=== PATIENT | male | born 1955 | race Caucasian/White ===

== ENCOUNTER 2017-02-20 14:28 | Inpatient (IN) | payer OTHER ==
[~2017-02-20] VITALS: Ht 175.3 cm; Wt 79.4 kg
[~2017-02-20 14:28] MED LIST: AMLODIPINE BESYL5 M1 PO; COLCHICINE0.6 M2 PO; DELTASONE20 MG PO; DOXYCYCLINE HY100 M4 PO; FLEXERIL10 MG PO; FLOMAX0.4 M1 PO; IBUPROFEN800 M1 PO; PERCOCET 325 MG1 TA2 PO; PERCOCET 5-3251 EACH PO; VYTORIN 10-401 EACH PO; WARFARIN SODIUM5 M1 PO; ZOFRAN ODT4 M1 SL
--- NOTE | 2017-02-20 14:39 | NUR ---
PT RETURNS TO ED WITH C/O LEFT FLANK PAIN, DX WITH KIDNEY STONE YESTERDAY, TAKING PAIN MEDS PRESCIBED, "NOT WORKING ANY MORE".
--- NOTE | 2017-02-20 14:44 | ED GI/GU/ABDOMINAL COMPLAINT ---
History of Present Illness General Chief Complaint: Abdominal Pain/Flank Pain Stated Complaint: KIDNEY STONE Source: patient Exam Limitations: no limitations Vital Signs & Intake/Output Vital Signs & Intake/Output Vital Signs Date Time Temp Pulse Resp B/P B/P Pulse O2 O2 Flow FiO2 Mean Ox Delivery Rate 02/21 0650 98.6 72 20 130/72 95 02/20 2303 98.3 78 20 124/60 97 02/20 2243 97.4 55 18 100/53 97 Room Air Room Air 02/20 2048 97.8 54 18 107/54 02/20 2048 97.5 54 18 107/54 98 Room Air Room Air 02/20 1938 97.8 50 18 102/53 95 Room Air 02/20 1626 97.8 73 18 121/69 95 Room Air 02/20 1438 97.0 76 20 159/99 98 Room Air Room Air ED Intake and Output 02/21 0000 02/20 1200 Intake Total 1000 Output Total Balance 1000 Intake, IV 1000 Patient 175 lb Weight Weight Reported by Patient Measurement Method Allergies Coded Allergies: Penicillins (UNKNOWN 03/06/16) shrimp (HIVES, TONGUE SWELLED 02/20/17) morphine (ITCHY AND UPSET STOMACH (VIOLENTLY ILL) 03/06/16) Reconcile Medications Amlodipine Besylate 5 MG TABLET 1 TAB PO DAILY BP (Reported) Ezetimibe/Simvastatin (Vytorin 10-40 MG Tablet) 10 MG-40 MG TABLET 1 TAB PO DAILY CHOLESTEROL (Reported) Ibuprofen 800 MG TABLET 1 TAB PO TID PRN pain Ondansetron (Zofran Odt) 4 MG TAB.RAPDIS 1 TAB SL TID PRN nausea Oxycodone HCl/Acetaminophen (Percocet 5-325 MG Tablet) 5 MG-325 MG TABLET 1 TAB PO Q6H PRN pain Tamsulosin HCl (Flomax) 0.4 MG CAP.ER.24H 1 CAP PO DAILY kidney stones Warfarin Sodium 5 MG TABLET 1 TAB PO AD BLOOD THINNER (Reported) Warfarin Sodium (Coumadin) 2.5 MG TABLET 1 TAB PO Sunday BLOOD THINNER (Reported) Triage Note: PT RETURNS TO ED WITH C/O LEFT FLANK PAIN, DX WITH KIDNEY STONE YESTERDAY, TAKING PAIN MEDS PRESCIBED, "NOT WORKING ANY MORE". Triage Nurses Notes Reviewed? yes Onset: Gradual Duration: waxing and waning (2 days) Timing: recent history Quality/Severity: sharpness Severity Numbers: 10 Location: left flank Radiation: back, LLQ Activities at Onset: none Prior Abdominal Problems: similar symptoms Past Sexual History: Unobtainable at this time No Modifying Factors: none HPI: Patient is a 61-year-old male, recently diagnosed with kidney stone presenting to the emergency department with chief complaint of worsening left flank pain over the past one day. Patient reports that he was feeling improved after he was discharged, medicated in the emergency department yesterday. He tried taking medications morning for his pain which did not help. Positive nausea with one episode of emesis. Emesis was nonbloody nonbilious. Denies any fevers or chills. No chest pain palpitations or shortness of breath. Denies any urinary frequency or urgency or dysuria. No hematuria noted. Pain over the left flank radiates to the left mid back and left lower quadrant. (MARTHA JEONG) Past History Travel History Traveled to [place] past 21 day No Medical History Any Pertinent Medical History? 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 No (MARTHA JEONG) Review of Systems Review of Systems Constitutional: Reports: no symptoms. Comments Review of systems: See HPI, All other systems negative. Constitutional, no chills fever or weight loss HEENT: No visual changes no sore throat no congestion Cardiovascular: No chest pain ,palpitation , orthopnea or ankle swelling Skin, no jaundice no rashes Respiratory: No dyspnea cough sputum or hemoptysis GI: No diarrhea : No dysuria No hematuria Muscle skeletal: no back pain, no neck pain, Neurologic: No numbness no confusion, no headache Psych: No stress anxiety or depression,. Heme/endocrine: No bruising no bleeding no polyuria or polydipsia Immunology: No splenectomy or history of AIDS (MARTHA JEONG) Physical Exam Physical Exam General Appearance: alert, anxious, mild distress Gastrointestinal: tenderness Comments: Well-developed well-nourished person in moderate distress HEENT: Pupils equally round and reactive to light and accommodation. Nose is atraumatic. Neck: Normal inspection Back: Nontender, no CVA tenderness. Full range of motion Cardiovascular: Regular rate and rhythms no murmurs rubs or gallops, normal JVP Respiratory: Chest nontender. No respiratory distress.breath sounds clear to auscultation bilaterally. Abdomen: Soft, tender to palpation over the left flank, positive left CVA tenderness. Nondistended, no appreciable organomegaly. Normal bowel sounds. No ascites Extremity: No edema Neuro: Alert oriented x3 Skin: No appreciable rash on exposed skin, skin is warm and dry. Psych: Mood and affect is normal, memory and judgment is normal. Core Measures ACS in differential dx? No Severe Sepsis Present: No Septic Shock Present: No (DEYA RUELAS,MARTHA) Progress Differential Diagnosis: UTI/pyelo, hydronephrosis, pyelonephritis Plan of Care: Orders Procedure Date/time Status Regular Diet 02/21 B Active PROTHROMBIN TIME 02/21 0600 Active CBC WITHOUT DIFFERENTIAL 02/21 0600 Active BASIC ELECTROLYTES PLUS BUN&CR 02/21 0600 Active LACTIC ACID 02/21 0144 Complete Vital Signs 02/21 0122 Active Teach/Educate 02/21 0122 Active Pain Treatment and Response 02/21 0122 Active Nutritional Intake, Monitor 02/21 0122 Active Isolation 02/21 0122 Active Intake & Output 02/21 0122 Active Patient Care Conference 02/21 0122 Active Activity/Ambulation 02/21 0122 Active Nursing Misc 02/21 UNK Active Regular Diet 02/20 D Complete PROTHROMBIN TIME 02/20 2303 Complete Pathway - chart 02/20 2300 Active House Staff 02/20 2300 Active Patient Data 02/20 2300 Active Code Status 02/20 2300 Active LACTIC ACID 02/20 2244 Complete OXYGEN SETUP (GEN) 02/20 190 Active Saline Lock 02/[address] in observation 02/20 190 Active Vital Signs 02/20 190 Active Activity/Ambulation 02/20 190 Active Code Status 02/20 190 Complete Patient Data 02/20 1903 Active CULTURE,URINE 02/20 181 Active URINE DRUGS OF ABUSE 02/20 1816 Complete Intake & Output 02/20 1642 Active URINALYSIS 02/20 1443 Complete COMPREHENSIVE METABOLIC PANEL 02/20 1443 Complete CBC WITHOUT DIFFERENTIAL 02/20 1443 Complete Lab Add-on Test 02/20 UNK Active VTE Mechanical Prophylaxis 02/20 UNK Active EKG 02/20 UNK Active Current Medications Sig/Chapo Start time Last Medication Dose Stop Time Status Admin Atorvastatin Calcium 40 MG 1700 02/21 1700 AC (Lipitor) Amlodipine Besylate 5 MG DAILY 02/21 1000 AC (Norvasc) Enoxaparin Sodium 40 MG DAILY 02/21 1000 CAN (Lovenox) Pantoprazole Sodium 40 MG DAILY 02/21 1000 AC (Protonix) Tamsulosin HCl 0.4 MG DAILY 02/21 1000 AC (Flomax) Sodium Chloride 1,000 ML Q13H 02/20 2345 AC 02/21 (Normal Saline 0.9%) 0118 Ondansetron HCl 4 MG Q6P PRN 02/20 2330 AC (Zofran) Acetaminophen 650 MG Q6P PRN 02/20 2300 AC (Tylenol) Hydromorphone HCl 1 MG Q6P PRN 02/20 2300 AC 02/21 (Dilaudid) 0633 Ketorolac 15 MG Q6P PRN 02/20 2300 AC Tromethamine 02/25 2259 (Toradol) Ketorolac 30 MG ONCE ONE 02/20 1500 CAN Tromethamine 02/20 1501 (Toradol) Ondansetron HCl 4 MG ONCE ONE 02/20 1500 CAN (Zofran) 02/20 1501 Laboratory Tests 02/21/17 0240: Lactic Acid 0.8 02/20/175: Lactic Acid 1.4, PT 29.1 H, INR 2.80 H 02/20/17 1816: Urine Opiates Screen 1742.00, Methadone Screen < 40, Barbiturate Screen < 60, Ur Phencyclidine Scrn < 6.00, Amphetamines Screen < 100, U Benzodiazepines Scrn 124 , Urine Cocaine Screen < 50, Urine Cannabis Screen > 80.00 H, Urinalysis MANY H, Urine Color YEL, Urine Clarity HAZY H, Urine pH 7.5, Ur Specific [place] 1.020, Urine Protein 100 H, Urine Ketones 15 H, Urine Nitrite NEG, Urine Bilirubin NEG, Urine Urobilinogen 0.2, Ur Leukocyte Esterase NEG, Ur Microscopic SEDIMENT EXAMINED, Urine RBC 10-15 H, Urine WBC RARE, Ur Epithelial Cells RARE, Urine Mucus RARE, Urine Hemoglobin MOD H, Urine Glucose NEG 02/20/17 1452: Anion Gap 15, Estimated GFR > 60, BUN/Creatinine Ratio 16.7, Glucose 105 H, Calcium 10.0, Total Bilirubin 0.7, AST 46, ALT 34, Alkaline Phosphatase 78, Total Protein 7.7, Albumin 5.0, Globulin 2.7, Albumin/Globulin Ratio 1.9, CBC w Diff NO MAN DIFF REQ, RBC 4.03 L, MCV 90.8, MCH 31.0, RDW 13.5, MPV 7.1 L, Gran % 67.2, Lymphocytes % 24.1, Monocytes % 7.6, Eosinophils % 0.3, Basophils % 0.8, Absolute Granulocytes 4.8, Absolute Lymphocytes 1.7, Absolute Monocytes 0.5 , Absolute Eosinophils 0, Absolute Basophils 0.1, PUBS MCHC 34.2 Microbiology 02/21 1816 URINE ROUT: Urine Culture - RECD Diagnostic Imaging: Viewed by Me: Radiology Read, Nuclear Medicine. Discussed w/RAD: Radiology Read , Ultrasound. Radiology Impression: PATIENT: REGIS HADDAD PRESENT AGE: 61 PATIENT ACCOUNT NO: [id number] : 59 LOCATION: [facility] ORDERING PHYSICIAN: MARTHA RUELAS SERVICE DATE: 02/20/17 EXAM TYPE: RAD - XRY-KIDNEYS, URETERS, BLADDER EXAMINATION: XR KIDNEYS, URETER, BLADDER CLINICAL INDICATION: Left flank pain. Assess kidney stone. COMPARISON: CT of the abdomen and pelvis 02/19/2017. TECHNIQUE: 2 AP views of the abdomen. FINDINGS: A faint 4 mm calculus at the level of the left L4 transverse process may correspond to the left ureteral calculus identified on the previous CT scan. No other definite renal or ureteral calculi are identified. The bowel gas pattern is unremarkable. IMPRESSION: The previously noted left mid ureteral 4 mm calculus may be faintly visualized at the level of the left L4 transverse process. DICTATED BY: ISRRAEL VAZQUEZ MD , PATIENT: REGIS HADDAD PRESENT AGE: 61 PATIENT ACCOUNT NO: [id number] : 59 LOCATION: ER ORDERING PHYSICIAN: MARTHA RUELAS SERVICE DATE: 02/20/17-151 EXAM TYPE: US - US-RENAL/ KIDNEY EXAMINATION: US RETROPERITONEAL COMPLETE (RENAL) CLINICAL INFORMATION: Worsening flank pain. COMPARISON: CT 02/19/2017. TECHNIQUE: Real-time imaging of the kidneys and bladder. FINDINGS: The kidneys are normal in size and echotexture with the right kidney measuring 10.6 and the left kidney measuring 12.0 cm in maximal dimensions. There is no evidence of hydronephrosis or nephrolithiasis identified. There is no evidence of intraperitoneal free fluid identified. The urinary bladder contains 92 cc of fluid. Ureteral jets are not demonstrated. I am not provided with post void imaging. IMPRESSION: Unremarkable examination. DICTATED BY: ALISSA DAVID MD DATE/TIME DICTATED:02/20/171635 [employer] OFFICER:DEBBY DATE/TIME TRANSCRIBED:02/20/171635 CONFIDENTIAL, DO NOT COPY WITHOUT APPROPRIATE AUTHORIZATION. <Electronically signed in Other Vendor System> SIGNED BY: ALISSA DAVID MD 02/20/17 1642 Initial ED EKG: none Comments: Spoke with Dr. Ochoa, recommending pain control. If pain can be controlled patient to be discharged home. Patient still having significant pain after several doses of IV Dilaudid, IV Toradol and IV Tylenol. So vomiting after Zofran. Patient will be given Phenergan. Patient will be admitted for observation for intractable pain, renal colic. (MARTHA JEONG) Departure Departure Time of Disposition: 1857 Disposition: STILL A PATIENT Condition: Stable Clinical Impression Primary Impression: Intractable pain Secondary Impressions: Kidney stone, Renal colic Referrals: JASPREET PINEDA DO (PCP/Family) Departure Forms: Customer Survey General Discharge Information Observation Note Spoke With: YULY CORLEY MD Physician Advisor Notified: JUDITH WHITEHEAD DO Place Patient In: Non-ED OBS Care Area Rationale for Observation: My rational for observation is as follows . Patient requiring IV pain management, IV fluids, strain urine, urology consultation. Discharge at this time would be medically harmful, patient would likely return for worsening pain. (MARTHA JEONG) PA/DOOR ATTENDANT Co-Sign Statement Statement: ED Attending supervision documentation- x I saw and evaluated the patient. I have also reviewed all the pertinent lab results and diagnostic results. I agree with the findings and the plan of care as documented in the PA's/DOOR ATTENDANT's documentation. [] I have reviewed the ED Record and agree with the PA's/DOOR ATTENDANT's documentation. [] Additions or exceptions (if any) to the PAs/DOOR ATTENDANT's note and plan are summarized below: [] (PETE QUIGLEY,OMARI)
--- NOTE | 2017-02-20 14:49 | NUR ---
JESSENIA FALK AT BEDSIDE FOR EVALUATION
[2017-02-20 15:01] LABS: ABSOLUTE BASOPHIL COUNT 0.1 /CUMM (0.0-0.2); ABSOLUTE EOSINOPHIL COUNT 0 /CUMM (0.0-0.7); ABSOLUTE GRANULOCYTE CT 4.8 /CUMM (1.4-6.5); ABSOLUTE LYMPH COUNT 1.7 /CUMM (1.2-3.4); ABSOLUTE MONOCYTE COUNT 0.5 /CUMM (0.10-0.60); BASOPHIL % 0.8 % (0.0-2.0); EOSINOPHIL % 0.3 % (0-5); GRANULOCYTE % 67.2 % (42.2-75.2); HEMATOCRIT 36.6 % (42-52); MEAN CORPUSCULAR HGB CONC 34.2 G/DL (33.0-37.0); MEAN CORPUSCULAR VOLUME 90.8 FL (80.0-94.0); MEAN PLATELET VOLUME 7.1 FL (7.4-10.4); PLATELET COUNT 299 /CUMM (130-400); RBC DISTRIBUTION WIDTH 13.5 % (11.5-14.5); RED BLOOD CELL CT 4.03 /CUMM (4.70-6.10); WHITE BLOOD CELL COUNT 7.2 /CUMM (4.8-10.8)
--- NOTE | 2017-02-20 15:15 | NUR ---
PT MEDICATED PER EMAR AFTER THIRD IV ATTEMPT. PT IS MOANING AND THRASHING AROUND ON STRETCHER UNABLE TO COOPERATE WITH CARE AT THIS TIME.
--- NOTE | 2017-02-20 15:50 | RADIOLOGY REPORT ---
EXAMINATION: XR KIDNEYS, URETER, BLADDER CLINICAL INDICATION: Left flank pain. Assess kidney stone. COMPARISON: CT of the abdomen and pelvis 02/19/2017. TECHNIQUE: 2 AP views of the abdomen. FINDINGS: A faint 4 mm calculus at the level of the left L4 transverse process may correspond to the left ureteral calculus identified on the previous CT scan. No other definite renal or ureteral calculi are identified. The bowel gas pattern is unremarkable. IMPRESSION: The previously noted left mid ureteral 4 mm calculus may be faintly visualized at the level of the left L4 transverse process.
--- NOTE | 2017-02-20 16:06 | NUR ---
PT TO US VIA STRETCHER AT THIS TIME.
--- NOTE | 2017-02-20 16:42 | ULTRASOUND REPORT ---
EXAMINATION: US RETROPERITONEAL COMPLETE (RENAL) CLINICAL INFORMATION: Worsening flank pain. COMPARISON: CT 02/19/2017. TECHNIQUE: Real-time imaging of the kidneys and bladder. FINDINGS: The kidneys are normal in size and echotexture with the right kidney measuring 10.6 and the left kidney measuring 12.0 cm in maximal dimensions. There is no evidence of hydronephrosis or nephrolithiasis identified. There is no evidence of intraperitoneal free fluid identified. The urinary bladder contains 92 cc of fluid. Ureteral jets are not demonstrated. I am not provided with post void imaging. IMPRESSION: Unremarkable examination.
[2017-02-20] MEDS ORDERED: COUMADIN2.5 M1 PO (16:56)
--- NOTE | 2017-02-20 20:49 | NUR ---
PT RESTING QUIETLY ON STRETCHER. OFFERS NO COMPLAINTS AT THIS TIME. PT ABLE TO TOLERATE PO MEDICATION AT THIS TIME. PHENERGAN HELD AT THIS TIME PT IS DENYING FURTHER NAUSEA SYMPTOMS.
--- NOTE | 2017-02-20 21:06 | NUR ---
PT ASSIGNED TO ROOM 209 BED 1
--- NOTE | 2017-02-20 21:55 | NUR ---
HOUSE STAFF AT BEDSIDE TO EVALUATE PT.
--- NOTE | 2017-02-20 22:08 | NUR ---
SARA BAILEY TO CALL BACK FOR REPORT.
--- NOTE | 2017-02-20 22:37 | NUR ---
REPORT GIVEN TO SARA BAILEY. TRANSPORT BOOKED AT THIS TIME.
--- NOTE | 2017-02-20 22:49 | History & Physical ---
DORITA DOMÍNGUEZ MD 02/20/17 6339: General Information and HPI MD Statement: I have seen and personally examined REGIS HADDAD and documented this H&P. The patient is a 61 year old M who presented with a patient stated chief complaint of left flank pain. Source of Information: patient Exam Limitations: patient refusal History of Present Illness: 61 year old male with past medical history of HTN and DVT s/p IVC filter on coumadin presents with left flank pain and diagnosed nephrolithiasis. Patient was recently diagnosed with kidney stone presenting with chief complaint of worsening left flank pain x one day. Patient complains of left flank pain radiating to the left abdomen, intermittent, 10/10 in intensity and stabbing in nature. Patient was in the ED yesterday, had a CT scan with IV contrast that shows a normal right kidney, there is a 4 mm proximal left ureteral obstructive left-sided calculus with resultant grade 1-2 hydronephrosis and 4mm RLL and lingula lung nodules, and was discharged with pain medications. Patient reports pain medications did not help today and returned for pain management. KUB and renal ultrasound today show the stone still in left ureter but with improved hydronephrosis. Review of systems is positive nausea with nonbloody emesis. No fevers, chills, chest pain, dyspnea or other symptoms. Allergies/Medications Allergies: Coded Allergies: Penicillins (UNKNOWN 03/06/16) shrimp (HIVES, TONGUE SWELLED 02/20/17) morphine (ITCHY AND UPSET STOMACH (VIOLENTLY ILL) 03/06/16) Home Med list Amlodipine Besylate 5 MG TABLET 1 TAB PO DAILY BP (Reported) Ezetimibe/Simvastatin (Vytorin 10-40 MG Tablet) 10 MG-40 MG TABLET 1 TAB PO DAILY CHOLESTEROL (Reported) Ibuprofen 800 MG TABLET 1 TAB PO TID PRN pain Ondansetron (Zofran Odt) 4 MG TAB.RAPDIS 1 TAB SL TID PRN nausea Oxycodone HCl/Acetaminophen (Percocet 5-325 MG Tablet) 5 MG-325 MG TABLET 1 TAB PO Q6H PRN pain Tamsulosin HCl (Flomax) 0.4 MG CAP.ER.24H 1 CAP PO DAILY kidney stones Warfarin Sodium 5 MG TABLET 1 TAB PO AD BLOOD THINNER (Reported) Warfarin Sodium (Coumadin) 2.5 MG TABLET 1 TAB PO Sunday BLOOD THINNER (Reported) Compliance With Home Meds: GOOD Past History Travel History Traveled to [place] past 21 day No Medical History Neurological: NONE EENT: NONE Cardiovascular: CVA DVT Respiratory: NONE Gastrointestinal: NONE Hepatic: NONE Renal: KIDNEY STONES Musculoskeletal: NONE Psychiatric: NONE Endocrine: NONE Blood Disorders: NONE Cancer(s): NONE DIETETICS DIRECTOR/Reproductive: NONE Surgical History Surgical History: non-contributory Past Family/Social History Psychosocial History Services at Home: None ETOH Use: denies use Illicit Drug Use: denies illicit drug use Sexual History Past Sexual History Unobtainable at this time Review of Systems Review of Systems Constitutional: Reports: see HPI. Exam & Diagnostic Data Last 24 Hrs of Vital Signs/I&O Vital Signs Date Time Temp Pulse Resp B/P B/P Pulse O2 O2 Flow FiO2 Mean Ox Delivery Rate 02/20 2303 98.3 78 20 124/60 97 02/20 2243 97.4 55 18 100/53 97 Room Air Room Air 02/20 2048 97.8 54 18 107/54 02/20 2048 97.5 54 18 107/54 98 Room Air Room Air 02/20 1938 97.8 50 18 102/53 95 Room Air 02/20 1626 97.8 73 18 121/69 95 Room Air 02/20 1438 97.0 76 20 159/99 98 Room Air Room Air Intake & Output 02/20 1600 02/20 0800 02/20 0000 Intake Total Output Total Balance Patient 175 lb Weight Weight Reported by Patient Measurement Method Physical Exam General Appearance sleepy but alert and oriented HEENT Atraumatic, EOMI, Mucous Membr. moist/pink Cardiovascular Regular Rate, Normal S1, Normal S2, No Murmurs Lungs Clear to Auscultation, Normal Air Movement Abdomen Normal Bowel Sounds, Soft, No Masses, left CVA tenderness Neurological Normal Speech, Strength at 5/5 X4 Ext, Normal Tone Extremities No Cyanosis, No Edema Last 24 Hrs of Labs/Denzel: Laboratory Tests 02/20/171815: Urinalysis MANY H, Urine Color YEL, Urine Clarity HAZY H, Urine pH 7.5, Ur Specific [place] 1.020, Urine Protein 100 H, Urine Ketones 15 H, Urine Nitrite NEG, Urine Bilirubin NEG, Urine Urobilinogen 0.2, Ur Leukocyte Esterase NEG, Ur Microscopic SEDIMENT EXAMINED, Urine RBC 10-15 H, Urine WBC RARE, Ur Epithelial Cells RARE, Urine Mucus RARE, Urine Hemoglobin MOD H, Urine Glucose NEG 02/20/17 1452: Anion Gap 15, Estimated GFR > 60, BUN/Creatinine Ratio 16.7, Glucose 105 H, Calcium 10.0, Total Bilirubin 0.7, AST 46, ALT 34, Alkaline Phosphatase 78, Total Protein 7.7, Albumin 5.0, Globulin 2.7, Albumin/Globulin Ratio 1.9, CBC w Diff NO MAN DIFF REQ, RBC 4.03 L, MCV 90.8, MCH 31.0, RDW 13.5, MPV 7.1 L, Gran % 67.2, Lymphocytes % 24.1, Monocytes % 7.6, Eosinophils % 0.3, Basophils % 0.8, Absolute Granulocytes 4.8, Absolute Lymphocytes 1.7, Absolute Monocytes 0.5 , Absolute Eosinophils 0, Absolute Basophils 0.1, PUBS MCHC 34.2 Assessment/Plan Assessment: 61 year old male with past medical history of HTN and DVT s/p IVC filter on coumadin presents with left flank pain and diagnosed nephrolithiasis. 1. Nephrolithiasis: hydronephrosis improved in past 24 hours Consult urology, Dr. Gerson Marsh urine, stone analysis Urine culture and antibiotics if febrile Gentle hydration 2. Hypertension: Continue Flomax and Norvasc 3. History of DVT: continue coumadin 2.5mg/5mg alternating days Check daily PT/INR 4. Hyperlipidemia: Continue statin therapy 5. Lung nodules: Needs follow up plan with pulmonology Heart healthy diet DVT ppx-on coumadin Full Code As Ranked By This Provider Problem List: 1. Kidney stone on left side 2. Deep venous thrombosis of lower extremity Core Measures/Miscellaneous Acute Coronary Syndrome ACS Diagnosis: No Cerebrovascular Accident CVA/TIA Diagnosis: No Congestive Heart Failure CHF Diagnosis: No VTE (View Protocol) VTE Risk Factors: Acute medical illness, Age > 40, Previous [facility] prophylaxis d/t: No contraindications No VTE Pharm Prophylaxis d/t: No contraindications VTE Diagnosis: No VTE Type: NONE VTE Confirmed by (Test): NONE Sepsis (View Protocol) Severe Sepsis Present: No Septic Shock Septic Shock Present: No Miscellaneous Documentation Attending Case Discussed With: YULY CORLEY MD Primary Care Physician: JASPREET PINEDA DO Patient sees these Specialists none Level of Patient Care: General Medicine Consults Needed: Consulting Specialty: Urology CONOR SCALES 02/21/17 0128: Resident Review Statement Resident Statement: examined this patient, discussed with help desk intern, agreed with help desk intern Other Findings: Patient is a 61-year-old male with past medical history significant for polysubstance abuse, and DVT status post IVC filter placement on Coumadin, hypertension and dyslipidemia and came with chief complaint of left-sided flank pain for one day and found to have 4 mm ureteric stone. Patient came to ER yesterday with left-sided ureteric stone and was sent home on analgesics but came back today with unbearable spasmodic left-sided flank pain. He was nauseous and also had episodes of vomiting. He denied any difficulty micturating or ameya hematuria. He denied fever and chills but later on during his stay he had shaking chills. Vital signs on admission temperature 97.0, pulse 76, respiratory rate 20, blood pressure 159/99 mmHg and he was saturating 98% on room air. Labs were WBC count 7.2, hemoglobin 12.5, hematocrit 36.6, sodium 143, potassium 3.7, BUN/creatinine 15, creatinine 0.9, lactic acid 1.4, urinalysis negative for leukocyte esterase or nitrate, 10-15 RBCs. U tox was positive for cannabis. KUB showed a mid ureteric 4 mm calculus at level of L4. Renal ultrasound was unremarkable without any evidence of hydronephrosis or nephrolithiasis. Physical examination Alert and oriented 3 Head atraumatic Neck supple Chest clear to auscultate Abdomen soft, positive costovertebral angle tenderness Extremities no cyanosis or edema No neurological deficit noted Assessment and plan 61 year old male with remote history of polysubstance abuse, DVT status post thrombectomy and IVC filter placement on Coumadin, hypertension and dyslipidemia came with left-sided flank pain and found to have ureteric 4 mm obstructed stone with mild hydronephrosis on yesterday scanned but renal ultrasound from today showed no hydronephrosis. Problem list 1. Ureteric colic with ureterolithiasis 2. History of DVT on anticoagulation 3. History of hypertension 4. History of dyslipidemia Plan We will observe patient on the medical floor for 24 hours -We will observe patient off of antibiotics for now but at any point if he developed fever or leukocyte ties doses will consider starting him on antibiotics -His INR is therapeutic we will does Coumadin according to INR to keep INR between 2 and 3 -We will hydrate patient with normal saline 75 ml per hour -Will send urine for culture -Analgesia for optimal pain control- -antiemetics as needed. We will check EKG for QTC -Urology evaluation in a.m. -We'll continue his home medications including amlodipine, statins and Coumadin -strain urine for stone retrieval Patient is DNI DNR Heart healthy diet Pharmacological DVT prophylaxis with Coumadin YULY CORLEY 02/21/17 0308: Attending MD Review Statement Attending Statement Attending MD Statement: examined this patient, discuss w/resident/PA/JOURNEYMAN ELECTRICIAN, agreed w/resident/PA/JOURNEYMAN ELECTRICIAN, reviewed EMR data (avail), reviewed images, amended to note Attending Assessment/Plan: CC : Persistent left flank pain PMH: Remote history of polysubstance abuse, secondary IL, DVT S/P IVC, CVA Patient was in ER yesterday for left flank pain of one-day duration. He was diagnosed to have ureteral stone and was discharged on Flomax and pain medications. Patient did not feel any better after going home, left-sided flank pain persisted, it radiates to anterior abdomen, associated with nausea and one episode of nonbilious nonbloody vomiting but no constipation diarrhea or fever. Patient had urinated only once during the day, denied any bloody urine, burning irritation or pain while passing urine. Last 2 days he is not been able to take any of his home medications because of pain. He did not notice any passing stone. Patient is getting intermittent chills, states that it is because of the pain. Otherwise 14 point ROS negative Vitals: Afebrile, HR in 70s, RR 18, blood pressure 121/69, saturating well on room air. On exam: Patient is twisting and turning and pain, had an episode of chills in front of me with sweating, A O 3, cooperative, neck supple, JVD normal, no lymphadenopathy, mucosa dry, no focal neurological deficit, no dependent edema, no obvious skin rashes or inflammation CVS: S1-S2, RRR. RS: Clear to auscultate bilaterally. Abdomen: Soft, tender on left CVA, bowel sounds present. Patient has an abrasion wound on left lower extremity, healing, tenderness present. Labs: CMP unremarkable, bicarbonate 20, anion gap 15, creatinine 0.9, calcium 10.0, LFT unremarkable, INR 2.8 UA positive for 15 ketones, protein, BESSIE, 15 RBC, moderate hemoglobin X-ray KUB: The previously noted left mid ureteral 4 mm calculus may be faintly visualized at the level of the left L4 transverse process. Renal ultrasound: There is no evidence of hydronephrosis or nephrolithiasis identified. CT ABD & PELVIS W IV CONTRAST (February 19) 1. 4 mm obstructive proximal left ureteral calculus with resultant grade 1-2 hydronephrosis. 2. Right middle lobe and lower lobe nodules. The right middle lobe nodule stable. The right lower lobe nodule is possibly increased in size, with the caveat of possible slice selection. Stable lingular nodular density. A and P 61-year-old male with past medical history significant for DVT currently on warfarin, HTN presented to ER for persistent left flank pain radiating to abdomen, CVA tenderness present, patient is found to have 4 mm obstructing ureteral calculus on left side, UA is not significant for infection, no significant leukocytosis or fever. Patient is getting intermittent shakes Because of ? severe pain, will get blood cultures, urine cultures and hold off antibiotics for now. Urology was consulted from ER suggested pain control. + Left-sided obstructing ureteric calculus with mild hydronephrosis with no evidence of infection + History of HTN, DVT, GERD - Place in observation on general medicine - Urine culture, blood culture - Check lactate - Continue IV hydration - Continue Flomax - Strain urine - Adequate pain control - Continue all his home medications including warfarin - Urology consult in a.m. - Lung nodule outpatient follow-up
[2017-02-20 23:03] VITALS: BP 124/60
[2017-02-21 00:16] LABS: PT 29.1 SEC (9.4-12.5)
--- NOTE | 2017-02-21 01:36 | NUR ---
NURSING NOTE: LATE ENTRY. PT ARRIVED TO FLOOR FROM ED BY STRETCHER AT 2303 ON 02/20/17. PT A&OX3, ON ROOM AIR, NO DISTRESS NOTED. VSS, AFEBRILE, DENIES CP. PT CURRENTLY HAVING NO URINARY SYMPTOMS BUT DID C/O SOME NAUSEA WHICH HE SAID HE HAD IN ED. NOTIFIED AND REGLAN ORDERED BUT PT STATES HE WAS NO LONGER FEELING NAUSEOUS AND DID NOT WANT TO TAKE MEDICATIONS. PT C/O THAT HE DID NOT EAT OR DRINK ANYTHING DOWNSTAIRS. BOX LUNCH ORDERED FOR PT AND WATER PITCHER ON PTS BED SIDE TABLE. LACTIC ACID DRAWN AND CAME BACK AT 1.4. NEXT LACTIC ACID TO BE DRAWN AT 0230. IV FLUIDS RUNNING AT 75 ML/HR. PT INSTRUCTED TO VOID IN URINAL SO THIS RN CAN STRAIN URINE FOR KIDNEY STONES. PT OFFERED PAIN AND NAUSEA MEDS BUT PT IS NOT HAVING ANY COMPLAINTS OF BOTH AT THIS TIME AND SAYS HE JUST WANTS TO SLEEP. NEEDS WITHIN REACH. WILL CONTINUE TO MONITOR.
[2017-02-21 06:50] VITALS: BP 130/72
--- NOTE | 2017-02-21 07:50 | PN- Housestaff ---
Assessment/Plan Consulting Request: Consulting Specialty: Urology
[2017-02-21 08:12] LABS: ABSOLUTE BASOPHIL COUNT 0 /CUMM (0.0-0.2); ABSOLUTE EOSINOPHIL COUNT 0 /CUMM (0.0-0.7); ABSOLUTE GRANULOCYTE CT 6.6 /CUMM (1.4-6.5); ABSOLUTE LYMPH COUNT 1.9 /CUMM (1.2-3.4); ABSOLUTE MONOCYTE COUNT 0.7 /CUMM (0.10-0.60); BASOPHIL % 0.3 % (0.0-2.0); EOSINOPHIL % 0.4 % (0-5); GRANULOCYTE % 71.7 % (42.2-75.2); HEMATOCRIT 31.7 % (42-52); MEAN CORPUSCULAR HGB 31.4 PG (27.0-31.0); MEAN CORPUSCULAR HGB CONC 33.8 G/DL (33.0-37.0); MEAN CORPUSCULAR VOLUME 92.8 FL (80.0-94.0); MEAN PLATELET VOLUME 7.6 FL (7.4-10.4); PLATELET COUNT 219 /CUMM (130-400); RBC DISTRIBUTION WIDTH 13.9 % (11.5-14.5); RED BLOOD CELL CT 3.42 /CUMM (4.70-6.10); WHITE BLOOD CELL COUNT 9.3 /CUMM (4.8-10.8)
[2017-02-21 08:39] LABS: PT 27.6 SEC (9.4-12.5)
--- NOTE | 2017-02-21 09:50 | PN-Observation ---
KIMMIE ANDREW 02/21/17 0950: Observation Note Observation Note _ I have personally examined REGIS HADDAD. him disposition is uncertain at this time. Before a determination can be made, he requires continued observation for the following reasons []. - pain management for renal colic Assessment/Plan Assessment: Mr Haddad is a 61 yr old man w/ a PMH of CVA ( no residual weakness ), 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 Was seen in the ED recently, when a diagnosis of neprolithiasis was made, and discharged home on a pain management regimen. Returned again w/ worsenign left sided pain, worse upon moving, radiation to the left groin, 05/22 in severity. Decreased po intake, was reported. At the time of admisison, vitals temp 97, UT 76, RR 20, BP 159/99, 98 pc on RA. Lab findings indiacted, no leucocytosis wbc 7.2, Hb 12.5 ( slightly low ), MCV 90, platelets 299, Electrolytes were within normal limits, except slightly elevated chloride ( likely from NS infusion), Normal renal function BUN 15, Sr cr 0.9. Liver enzymes were within normal limits. INR 2.8( Coumadin use ), UA revelaed RBCs and Hb( likely from nephrolithiasis ), and no evidence of any infection. Radilogical finidings CT abd, pelvis 02/19/17 revealed 4 mm obstructive proximal left ureteral calculus with resultant grade 1-2 hydronephrosis. Incidental findings of lung nodules seen. However, the renal ultrasound did not reveal any signs of nephrolithiasis or hydronephoris. Differntial diagnosis: 1. Nephrolithiasis Below is the problem list and plan: 1. Back pain- physical findings postive for cva tenerness, likely from nephroithiasis. Doesnt appear like the pt has any pyelonephritis. Since the size of stone is less than 4mm, hope that it is passed spontaneously upon hydration. Other causes are ruled out, such as injury, intestinal. Pain management w/ dilaudid, and ketorolac. Monitor for any s/o systemic infection. 2. history of DVT s/p IVC- reason is unclear. Continue dosing w/ Coumadin. Reached out to the urology service, if they have any plans for the procedure; and unfortunately had to be continued on his anticoagulation regimen. 3. Substance use- currently reports no other drug use except cannabis. Utox showed cannabis. 4. Disposition- If the pain is adequately controlled, may dc the pt in the am. Problem List: 1. Renal colic 2. Kidney stone Consulting Request: Consulting Specialty: Urology Subjective Follow-up For: - back pain Subjective: Pt was in distress this am, when I saw him. Stated that pain meds relieved the discomfort, and hoped that this regimen is continued. Vitals were stable overnight. No fever. Review of Systems Constitutional: Reports: see HPI. EENTM: Denies: icterus. Cardiovascular: Denies: chest pain, orthopena, palpitations. Respiratory: Denies: hemoptysis, short of breath. Gastrointestinal: Denies: abdominal pain. Genitourinary: Denies: dysuria. Musculoskeletal: Denies: back pain. Skin: Denies: change in skin color, jaundice. Neurological/Psychological: Denies: headache. Hematologic/Endocrine: Denies: bruising, bleeding. Objective Last 24 Hrs of Vital Signs/I&O Vital Signs Date Time Temp Pulse Resp B/P B/P Pulse O2 O2 Flow FiO2 Mean Ox Delivery Rate 02/21 0916 69 150/90 02/21 0915 69 150/90 02/21 0650 98.6 72 20 130/72 95 02/20 2303 98.3 78 20 124/60 97 02/20 2243 97.4 55 18 100/53 97 Room Air Room Air 02/21 2048 97.8 54 18 107/54 02/20 204 97.5 54 18 107/54 98 Room Air Room Air 02/20 1938 97.8 50 18 102/53 95 Room Air 02/20 1626 97.8 73 18 121/69 95 Room Air 02/20 1438 97.0 76 20 159/99 98 Room Air Room Air Intake & Output 02/21 1600 02/21 0800 02/21 0000 Intake Total 720 1000 Output Total 500 Balance 220 1000 Intake, IV 600 1000 Intake, Oral 120 Output, Urine 500 Patient 175 lb Weight Physical Exam General Appearance: Mild Distress Skin: No Rashes, No Breakdown, No Significant Lesion Skin Temp/Moisture Exam: Warm/Dry Sepsis Skin Exam (color): Normal for Ethnicity, Cyanotic HEENT: Atraumatic, PERRLA, EOMI Neck: Supple, No JVD, No thryomegaly Lymphatic: Cervical nl Cardiovascular: Regular Rate, Normal S1, Normal S2 Lungs: Normal Air Movement Abdomen: Normal Bowel Sounds, Soft, No Tenderness, cva tenderness left side Neurological: Normal Speech, Strength at 5/5 X4 Ext, Normal Tone, Sensation Intact, Cranial Nerves 3-12 NL Extremities: No Cyanosis, No Edema, Normal Pulses Current Medications: Current Medications Sig/[place]apo Start time Last Medication Dose Route Stop Time Status Admin Acetaminophen 650 MG Q6P PRN 02/20 2300 AC PO Acetaminophen 0 .STK-MED ONE 02/20 1804 DC IV Acetaminophen 1,000 MG ONCE ONE 02/20 1800 DC 02/20 N/A 1 UNIT IV 02/20 1814 1808 Amlodipine Besylate 5 MG DAILY 02/21 1000 AC 02/21 PO 0916 Atorvastatin Calcium 40 MG 1700 02/21 1700 AC PO Enoxaparin Sodium 40 MG DAILY 02/21 1000 CAN SC Hydromorphone HCl 1 MG Q6P PRN 02/20 2300 AC 02/21 IV 0633 Hydromorphone HCl 0 .STK-MED ONE 02/20 1803 DC .ROUTE Hydromorphone HCl 1 MG ONCE ONE 02/20 1800 DC 02/20 IV 02/20 1801 1808 Hydromorphone HCl 0 .STK-MED ONE 02/20 1710 DC .ROUTE Hydromorphone HCl 1 MG ONCE ONE 02/20 1515 DC 02/20 IM 02/20 1516 1531 Hydromorphone HCl 0 .STK-MED ONE 02/20 1512 DC .ROUTE Ketorolac 15 MG Q6P PRN 02/20 2300 AC 02/21 Tromethamine IV 02/25 2259 0923 Ketorolac 30 MG ONE ONE 02/20 1515 DC 02/20 Tromethamine IM 02/20 1516 1531 Ketorolac 0 .STK-MED ONE 02/20 1505 DC Tromethamine .ROUTE Ketorolac 30 MG ONCE ONE 02/20 1500 CAN Tromethamine IV 02/20 1501 Metoclopramide HCl 10 MG ONCE ONE 02/20 2345 DC IV 02/20 2346 Ondansetron HCl 4 MG Q6P PRN 02/20 2330 AC IV Ondansetron HCl 4 MG ONCE ONE 02/20 1515 DC 07 IM 02/20 1516 1531 Ondansetron HCl 0 .STK-MED ONE 02/20 1505 DC .ROUTE Ondansetron HCl 4 MG ONCE ONE 02/20 1500 CAN IV 02/20 1501 Pantoprazole Sodium 40 MG DAILY 02/21 1000 AC 02/21 IV 0916 Promethazine HCl 25 MG ONCE ONE 02/20 1900 DC IV 02/20 1901 Sodium Chloride 1,000 ML Q13H 02/21 0915 AC IV Sodium Chloride 1,000 ML Q13H 02/20 2345 DC 02/21 IV 0118 Sodium Chloride 1,000 ML BOLUS ONE 02/20 1945 DC 07 IV 02/20 2044 1949 Sodium Chloride 1,000 ML BOLUS ONE 02/20 1800 DC 02/20 IV 02/20 1859 1808 Sodium Chloride 1,000 ML BOLUS ONE 02/20 1445 DC 07 IV 02/20 1544 1634 Tamsulosin HCl 0.4 MG DAILY 02/21 1000 AC 02/21 PO 0915 Tamsulosin HCl 0.4 MG ONCE ONE 02/20 1800 DC 07 PO 02/20 1801 2048 Warfarin Sodium 2.5 MG COUMADIN 1700 ONE 02/21 1700 CAN PO 02/21 1701 Warfarin Sodium 5 MG COUMADIN 1700 ONE 02/20 1700 DC PO 02/20 1701 Last 24 Hrs of Labs/Mics: Laboratory Tests 02/21/17 0640: Anion Gap 9, Estimated GFR > 60, BUN/Creatinine Ratio 15.0, PT 27.6 H, INR 2.65 H, CBC w Diff NO MAN DIFF REQ, RBC 3.42 L, MCV 92.8, MCH 31.4 H, RDW 13.9, MPV 7.6, Gran % 71.7, Lymphocytes % 20.3 L, Monocytes % 7.3, Eosinophils % 0.4, Basophils % 0.3, Absolute Granulocytes 6.6 H, Absolute Lymphocytes 1.9, Absolute Monocytes 0.7 H, Absolute Eosinophils 0, Absolute Basophils 0, PUBS MCHC 33.8 02/21/17 0240: Lactic Acid 0.8 02/20/17 2335: Lactic Acid 1.4, PT 29.1 H, INR 2.80 H 02/20/171815: Urine Opiates Screen 1742.00, Methadone Screen < 40, Barbiturate Screen < 60, Ur Phencyclidine Scrn < 6.00, Amphetamines Screen < 100, U Benzodiazepines Scrn 124 , Urine Cocaine Screen < 50, Urine Cannabis Screen > 80.00 H, Urinalysis MANY H, Urine Color YEL, Urine Clarity HAZY H, Urine pH 7.5, Ur Specific [place] 1.020, Urine Protein 100 H, Urine Ketones 15 H, Urine Nitrite NEG, Urine Bilirubin NEG, Urine Urobilinogen 0.2, Ur Leukocyte Esterase NEG, Ur Microscopic SEDIMENT EXAMINED, Urine RBC 10-15 H, Urine WBC RARE, Ur Epithelial Cells RARE, Urine Mucus RARE, Urine Hemoglobin MOD H, Urine Glucose NEG 02/20/17 1452: Anion Gap 15, Estimated GFR > 60, BUN/Creatinine Ratio 16.7, Glucose 105 H, Calcium 10.0, Total Bilirubin 0.7, AST 46, ALT 34, Alkaline Phosphatase 78, Total Protein 7.7, Albumin 5.0, Globulin 2.7, Albumin/Globulin Ratio 1.9, CBC w Diff NO MAN DIFF REQ, RBC 4.03 L, MCV 90.8, MCH 31.0, RDW 13.5, MPV 7.1 L, Gran % 67.2, Lymphocytes % 24.1, Monocytes % 7.6, Eosinophils % 0.3, Basophils % 0.8, Absolute Granulocytes 4.8, Absolute Lymphocytes 1.7, Absolute Monocytes 0.5 , Absolute Eosinophils 0, Absolute Basophils 0.1, PUBS MCHC 34.2 Microbiology 02/21 1816 URINE ROUT: Urine Culture - LOGAN RAYMUNDO MD,[facility] 02/21/17 1244: Observation Note Observation Note _ I have personally examined REGIS HADDAD. His disposition is uncertain at this time. Before a determination can be made, he requires continued observation for the following reasons []. -Pain control patient currently requires IV pain medications Objective Last 24 Hrs of Vital Signs/I&O Vital Signs Date Time Temp Pulse Resp B/P B/P Pulse O2 O2 Flow FiO2 Mean Ox Delivery Rate 02/21 0916 69 150/90 02/21 0915 69 150/90 02/21 0650 98.6 72 20 130/72 95 02/20 2303 98.3 78 20 124/60 97 02/20 2243 97.4 55 18 100/53 97 Room Air Room Air 02/20 2048 97.8 54 18 107/54 02/20 2048 97.5 54 18 107/54 98 Room Air Room Air 02/20 1938 97.8 50 18 102/53 95 Room Air 02/20 1626 97.8 73 18 121/69 95 Room Air 02/20 1438 97.0 76 20 159/99 98 Room Air Room Air Intake & Output 02/21 1600 02/21 0800 02/21 0000 Intake Total 720 1000 Output Total 400 500 Balance -665 479 9871 Intake, IV 600 1000 Intake, Oral 120 Output, Urine 400 500 Patient 79.379 kg Weight Addendum Note Addendum Patient seen and examined. Lying in bed not in acute distress but continues to complain of left flank pain. He continues to require intravenous analgesia present. Denies nausea vomiting. Denies fever or chills. Denies dysuria. He afebrile hemodynamically stable. He has no leukocytosis on his labs. Creatinine remains within normal limits. His hemoglobin level be trending downwards however this is likely dilutional. Recommendations: -Continue IV hydration, continue pain medication. -Follow-up with urology service regarding need for further imaging/intervention. -If no intervention planned by urology service please resume his oral anticoagulation agent.
[2017-02-21 14:30] VITALS: BP 130/60
[2017-02-21 21:50] VITALS: BP 118/60
--- NOTE | 2017-02-22 05:56 | PN- Housestaff ---
KIMMIE ANDREW 02/22/17 0553: Subjective Follow-up For: - left flank pain - Complaints: no complaints Subjective: Pt was comfortable this morning. States that pain was adequately controlled on current medications, but would have pain at the time when the effect of Dilaudid is wearing off. Discussed with them, if the dose of Dilaudid could be increased or changed her medications to by mouth and titrate the dose. He did not have any dysuria, abdominal pain, back pain. No fever, vitals were stable overnight. Placed a consult for Dr. Ochoa to see this patient this a.m. again. Received a phone call from Dr. Ochoa, and she stated that she would see the patent at the later part of the day. It does appear that the treatment is consultative in this case. Discussed with Dr. Solo, and made a decision to monitor the patient overnight and discharged only after urological evaluation. Review of Systems Constitutional: Reports: see HPI. Objective Last 24 Hrs of Vital Signs/I&O Vital Signs Date Time Temp Pulse Resp B/P B/P Pulse O2 O2 Flow FiO2 Mean Ox Delivery Rate 02/21 2150 98.6 61 18 118/60 95 Room Air 02/21 1430 98.1 75 20 130/60 96 Room Air 02/21 0916 69 150/90 02/21 0915 69 150/90 02/21 0650 98.6 72 20 130/72 95 Intake & Output 02/22 0800 02/22 0000 02/21 1600 Intake Total 1200 2060 Output Total 900 Balance 1200 1160 Intake, IV 600 600 Intake, Oral 600 1460 Number 0 Bowel Movements Output, Urine 900 Patient 175 lb Weight Weight Reported by Patient Measurement Method Physical Exam General Appearance: No Acute Distress Other Physical Findings: General Exam: AAOx3, No acute distress, Skin: No rashes, no breakdown HEENT: PERRLA, EOMI Neck: Supple, No JVD No cervical lymphadenopathy CVS: Reg Rate, Normal S1,S2, No MGR Resp: Normal air entry, no ronchi/rales Abdomen: Soft, No tenderness, Normal Bowel Sounds, CVA tenderness left side Neuro: Normal Speech, Strength 5/5 b/l x 4 extremities, Sensation intact, CN III -XII NL, Reflexes 2+ Extremities: No cyanosis, pedal edema Current Medications: Current Medications Sig/Chapo Start time Last Medication Dose Route Stop Time Status Admin Acetaminophen 650 MG Q6P PRN 02/20 2300 AC PO Amlodipine Besylate 5 MG DAILY 02/21 1000 AC 02/21 PO 0916 Atorvastatin Calcium 40 MG 1700 02/21 1700 AC 02/21 PO 1602 Docusate Sodium 100 MG DAILY 02/21 1615 AC 02/21 PO 2051 Hydromorphone HCl 1 MG Q6P PRN 02/20 2300 AC 02/21 IV 1540 Ketorolac 30 MG .STK-MED ONE 02/21 2051 DC Tromethamine IM 02/21 205 Ketorolac 15 MG .STK-MED ONE 02/21 0923 DC Tromethamine IM 02/21 0924 Ketorolac 15 MG Q6P PRN 02/20 2300 AC 02/21 Tromethamine IV 02/25 2259 205 Omeprazole 40 MG DAILY AC 02/22 0700 AC 02/22 PO 0530 Ondansetron HCl 4 MG Q6P PRN 02/20 2330 AC IV Pantoprazole Sodium 40 MG DAILY 02/21 1000 KS 02/21 IV 0916 Patient Medication 1 ED .STK-MED ONE 02/21 1433 KS Teaching ED 02/21 1434 Senna/Docusate Sodium 1 TAB BID PRN 02/21 1615 AC PO Sodium Chloride 1,000 ML Q13H 02/21 0915 AC 02/21 IV 2217 Sodium Chloride 1,000 ML Q13H 02/20 2345 DC 02/21 IV 0118 Tamsulosin HCl 0.4 MG DAILY 02/21 1000 AC 02/21 PO 0915 Warfarin Sodium 2.5 MG COUMADIN 1700 ONE 02/21 1700 CAN PO 02/21 1701 Warfarin Sodium 2.5 MG COUMADIN 1700 ONE 02/21 1700 DC 02/21 PO 02/21 1701 1602 Last 24 Hrs of Lab/Denzel Results Last 24 Hrs of Labs/Mics: Laboratory Tests 02/21/17 0640: Anion Gap 9, Estimated GFR > 60, BUN/Creatinine Ratio 15.0, PT 27.6 H, INR 2.65 H, CBC w Diff NO MAN DIFF REQ, RBC 3.42 L, MCV 92.8, MCH 31.4 H, RDW 13.9, MPV 7.6, Gran % 71.7, Lymphocytes % 20.3 L, Monocytes % 7.3, Eosinophils % 0.4, Basophils % 0.3, Absolute Granulocytes 6.6 H, Absolute Lymphocytes 1.9, Absolute Monocytes 0.7 H, Absolute Eosinophils 0, Absolute Basophils 0, PUBS MCHC 33.8 Assessment/Plan Assessment: Mr Banda is a 61 yr old man w/ a PMH of CVA ( no residual weakness ), 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 Was seen in the ED recently, when a diagnosis of neprolithiasis was made, and discharged home on a pain management regimen. Returned again w/ worsenign left sided pain, worse upon moving, radiation to the left groin, 10/10 in severity. Decreased po intake, was reported. Differntial diagnosis: 1. Nephrolithiasis Below is the problem list and plan: 1. Back pain- physical findings postive for cva tenerness, likely from nephroithiasis. Doesnt appear like the pt has any pyelonephritis. Since the size of stone is less than 4mm, hope that it is passed spontaneously upon hydration. Other causes are ruled out, such as injury, intestinal. Pain management with by mouth Dilaudid and by mouth ibuprofen. Monitor for any s/o systemic infection. Await recommendation from Dr. Ochoa. 2. history of DVT s/p IVC- reason is unclear. Continue dosing w/ Coumadin. No procedure planned, as per urology. 3. Substance use- currently reports no other drug use except cannabis. Utox showed cannabis, which he uses intermittently. 4. Disposition- If the pain is adequately controlled, may dc the pt in the am. Problem List: 1. Renal colic 2. Kidney stone 3. Intractable pain Pain Ratin Pain Location: back, left sided Pain Goal: Pain 4 or less Pain Plan: dilaudid ketorolac Tomorrow's Labs & Rationales: bep Consulting Request: Consulting Specialty: Urology DAIN SOLO MD 02/22/17 1057: Attending MD Review Statement Attending Statement Attending MD Statement: examined this patient, discuss w/resident/PA/SWITCHBOARD OPERATOR RECEPTIONIST, agreed w/resident/PA/SWITCHBOARD OPERATOR RECEPTIONIST, reviewed EMR data (avail), discussed with nursing, discussed with case mgmt, amended to note Attending Assessment/Plan: Patient seen and examined. Resting comfortably and not in acute distress. No issues overnight. Reports that his left front pain has improved though still present. He rated as 3/10 in intensity. It is noted that when he presented to the emergency room on February 19 imaging at that time showed obstructing left renal stone with left hydronephrosis. Upon Return to the emergency room 48 hours later renal ultrasound shows no evidence of renal stones or hydronephrosis. He is afebrile hemodynamically stable. Renal function is within normal limits. Urine cultures are negative. He had initially complained of constipation or reports having a bowel movement today after administration of bowel regimen. On examination is alert and oriented 3. Lungs are clear to auscultation bilaterally abdomen is soft and nontender. He has mild left CVA tenderness. Recommendations: -Discontinue IV fluids. -Discontinue IV pain medications and begin patient on Percocet for pain control. -Awaiting evaluation by the urology service. Once cleared by the urology service he may be discharged home. -Patient will be provided with a referral to the pulmonology service as an outpatient for follow-up of incidentally noted pulmonary nodules
[2017-02-22 06:28] VITALS: BP 120/68
[2017-02-22 08:37] LABS: PT 22.2 SEC (9.4-12.5)
--- NOTE | 2017-02-22 12:03 | Cons- Urology ---
General Information and HPI Consulting Request Date of Consult: 02/20/17 Requested By: DAIN RAYMUNDO M.D Reason for Consult: kidney stone Source of Information: patient Exam Limitations: poor historian History of Present Illness: 61yo male with PMH of HTN and DVT on coumadin presented with left flank pain and diagnosed nephrolithiasis the day prior in the ER. He c/o left flank stabbing pain radiating to the LLQ, intermittently 10/[address]scan with IV contrast revealed a 4 mm proximal left ureteral obstructive left-sided calculus with mild hydronephrosis. He returned to the ER bc pain medications did not help today. KUB and renal ultrasound today showed persistent stone still in the left ureter with improved hydronephrosis. No fevers, chills, chest pain, dyspnea or other symptoms. He denies anymore pain presently and is tolerating a regular diet. Allergies/Medications Allergies: Coded Allergies: Penicillins (UNKNOWN 03/06/16) shrimp (HIVES, TONGUE SWELLED 02/20/17) morphine (ITCHY AND UPSET STOMACH (VIOLENTLY ILL) 03/06/16) Home Med List: Amlodipine Besylate 5 MG TABLET 1 TAB PO DAILY BP (Reported) Ezetimibe/Simvastatin (Vytorin 10-40 MG Tablet) 10 MG-40 MG TABLET 1 TAB PO DAILY CHOLESTEROL (Reported) Ibuprofen 800 MG TABLET 1 TAB PO TID PRN pain Ondansetron (Zofran Odt) 4 MG TAB.RAPDIS 1 TAB SL TID PRN nausea Oxycodone HCl/Acetaminophen (Percocet 5-325 MG Tablet) 5 MG-325 MG TABLET 1 TAB PO Q6H PRN pain Tamsulosin HCl (Flomax) 0.4 MG CAP.ER.24H 1 CAP PO DAILY kidney stones Warfarin Sodium 5 MG TABLET 1 TAB PO AD BLOOD THINNER (Reported) Warfarin Sodium (Coumadin) 2.5 MG TABLET 1 TAB PO Sunday BLOOD THINNER (Reported) Past History Medical History Blood Transfusion Hx: No Neurological: NONE EENT: NONE Cardiovascular: CVA DVT Respiratory: NONE Gastrointestinal: NONE Hepatic: NONE Renal: KIDNEY STONES Musculoskeletal: NONE Psychiatric: NONE Endocrine: NONE Blood Disorders: NONE Cancer(s): NONE 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 Home Services at Home: None Smoking Status: Former Smoker ETOH Use: denies use Illicit Drug Use: denies illicit drug use Review of Systems Review of Systems Constitutional: Reports: no symptoms. EENTM: Reports: no symptoms. Cardiovascular: Reports: no symptoms. Respiratory: Reports: no symptoms. GI: Reports: no symptoms. Genitourinary: Reports: no symptoms. Musculoskeletal: Reports: no symptoms. Skin: Reports: no symptoms. Neurological/Psychological: Reports: no symptoms. Hematologic/Endocrine: Reports: no symptoms. Immunologic/Allergic: Reports: no symptoms. Exam & Diagnostic Data Vital Signs and I&O Vital Signs Date Time Temp Pulse Resp B/P B/P Pulse O2 O2 Flow FiO2 Mean Ox Delivery Rate 02/22 0939 64 120/68 02/22 0939 64 120/68 02/22 0628 98.7 64 20 120/68 96 Room Air 02/21 2150 98.6 61 18 118/60 95 Room Air 02/21 1430 98.1 75 20P 130/60 96 Room Air Intake & Output 02/22 1600 02/22 0800 02/22 0000 02/21 1600 02/21 0800 02/21 0000 Intake Total 600 1200 2060 720 1000 Output Total 900 500 Balance 600 1200 7284 253 0397 Intake, IV 600 600 804 561 5536 Intake, Oral 600 1460 120 Number 0 Bowel Movements Output, Urine 900 500 Patient 79.379 kg 79.379 kg Weight Weight Reported by Patient Measurement Method Physical Exam: Pt awake sitting up in bed eating breakfast He states he has no more pain abd soft ND/NT Physical Exam General Appearance: well developed/nourished, no apparent distress, alert, awake , comfortable Head: atraumatic, normal appearance Eyes: Bilateral: normal appearance. Ears, Nose, Throat: normal ENT inspection Neck: normal inspection Respiratory: no respiratory distress, quiet respiration Gastrointestinal: soft, non-tender Rectal: deferred Neurologic/Psych: awake, alert, oriented x 3 Cranial Nerves: normal hearing, normal speech Skin: intact, normal color, warm/dry Imaging Results: Renal US 02/20/17 The kidneys are normal in size and echotexture with the right kidney measuring 10.6 and the left kidney measuring 12.0 cm in maximal dimensions. There is no evidence of hydronephrosis or nephrolithiasis identified. There is no evidence of intraperitoneal free fluid identified. The urinary bladder contains 92 cc of fluid. Ureteral jets are not demonstrated. I am not provided with post void imaging. IMPRESSION: Unremarkable examination. Other Results: 02/19/17 CT scan Left ureteral stone with mild hydronephrosis Assessment/Plan Assessment/Plan 61 yo male with new onset renal colic with left ureteral stone in place with mild hydronephrosis and pain well controlled. He did not want any intervention. Recommend cont flomax, increase fluid intake, po pain meds, and strain urine. REcommend FU with urology as an outpt next week or sooner if with worsening symptoms. Consult Acknowledgment - Thank you for your consult request.
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
[2017-02-22 14:06] VITALS: BP 128/70
[2017-02-22 22:05] VITALS: BP 112/62
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
[2017-02-23 07:07] VITALS: BP 122/72
[2017-02-23] MEDS ORDERED: PERCOCET 5-3251 EACH PO (09:07)
[2017-02-23 09:17] LABS: PT 17.6 SEC (9.4-12.5)
[2017-02-23 10:06] VITALS: BP 132/84
[2017-02-23 13:17] LABS: ABSOLUTE BASOPHIL COUNT 0 /CUMM (0.0-0.2); ABSOLUTE EOSINOPHIL COUNT 0.1 /CUMM (0.0-0.7); ABSOLUTE GRANULOCYTE CT 4.5 /CUMM (1.4-6.5); ABSOLUTE LYMPH COUNT 2.3 /CUMM (1.2-3.4); ABSOLUTE MONOCYTE COUNT 0.8 /CUMM (0.10-0.60); BASOPHIL % 0.4 % (0.0-2.0); EOSINOPHIL % 1.2 % (0-5); GRANULOCYTE % 58.7 % (42.2-75.2); MEAN CORPUSCULAR HGB 30.7 PG (27.0-31.0); MEAN CORPUSCULAR HGB CONC 33.8 G/DL (33.0-37.0); MEAN CORPUSCULAR VOLUME 90.7 FL (80.0-94.0); PLATELET COUNT 308 /CUMM (130-400); RBC DISTRIBUTION WIDTH 13.6 % (11.5-14.5); WHITE BLOOD CELL COUNT 7.7 /CUMM (4.8-10.8)
--- NOTE | 2017-02-23 13:19 | PN- Urology ---
Subjective Subjective: pt feeling ok but still requiring po pain mgt Review of Systems Constitutional: Reports: no symptoms. EENTM: Reports: no symptoms. Cardiovascular: Reports: no symptoms. Respiratory: Reports: no symptoms. Gastrointestinal: Reports: abdominal pain. Musculoskeletal: Reports: back pain. Skin: Reports: no symptoms. Neurological/Psychological: Reports: no symptoms. Hematologic/Endocrine: Reports: no symptoms. Immunologic/Allergic: Reports: no symptoms. Objective Vital Signs and I&Os Vital Signs Date Time Temp Pulse Resp B/P B/P Pulse O2 O2 Flow FiO2 Mean Ox Delivery Rate 02/23 1006 72 132/84 02/23 1005 72 132/84 02/23 0707 97.6 63 20 122/72 98 Room Air 02/22 2205 98.2 66 18 112/62 97 02/22 1406 98.2 68 20 128/70 96 Room Air Intake & Output 02/23 1600 02/23 0800 02/23 0000 02/22 1600 02/22 0800 02/22 0000 Intake Total 10 588 641 5542 Output Total 350 Balance 10 -350 241 179 5550 Intake, IV 10 75 600 600 Intake, Oral 600 600 Number 1 Bowel Movements Output, Urine 350 Physical Exam: awake and alert, NAD lying in bed abd soft, ND mild tenderness at LLQ left CVA tenderness mild No C/C/E Physical Exam General Appearance: well developed/nourished, no apparent distress, alert, awake , comfortable Head: atraumatic, normal appearance Ears, Nose, Throat: normal ENT inspection Neck: normal inspection Respiratory: no respiratory distress, quiet respiration Abdomen: soft, non-tender Rectal: deferred Back: CVA tenderness (L) Extremities: normal inspection, no edema Neurologic/Psychiatric: awake, alert, oriented x 3 Skin: intact, normal color, warm/dry Current Medications: Current Medications Sig/Chapo Start time Last Medication Dose Route Stop Time Status Admin Acetaminophen 650 MG .STK-MED ONE 02/22 1657 DC PO 02/22 1658 Acetaminophen 650 MG Q6P PRN 02/20 2300 AC 02/22 PO 1656 Amlodipine Besylate 5 MG DAILY 02/21 1000 AC 02/23 PO 1006 Atorvastatin Calcium 40 MG 1700 02/21 1700 AC 02/22 PO 1654 Docusate Sodium 100 MG DAILY 02/21 1615 AC 02/23 PO 1005 Ibuprofen 800 MG TID PRN 02/22 0800 AC 02/22 PO 2148 Ketorolac 30 MG ONCE ONE 02/23 0645 CAN Tromethamine IV 02/23 0646 Morphine Sulfate 2 MG ONCE ONE 02/23 0615 CAN IV 02/23 0616 Omeprazole 40 MG DAILY AC 02/22 0700 AC 02/23 PO 0819 Ondansetron HCl 4 MG Q6P PRN 02/20 2330 AC IV Oxycodone/ 2 TAB ONCE ONE 02/23 0645 DC 02/23 Acetaminophen PO 02/23 0646 0647 Oxycodone/ 1 TAB Q6P PRN 02/22 0845 AC 02/23 Acetaminophen PO 1230 Polyethylene Glycol 17 GM DAILY 02/22 1000 AC PO Senna/Docusate Sodium 1 TAB BID 02/22 1000 AC 02/23 PO 1005 Tamsulosin HCl 0.4 MG DAILY 02/21 1000 AC 02/23 PO 1005 Warfarin Sodium 5 MG COUMADIN 1700 ONE 02/22 1700 DC 02/22 PO 02/22 1701 1700 Results Last 48 Hours of Labs: Laboratory Tests 02/23 02/23 02/23 02/22 1240 1240 0637 0747 Chemistry Sodium (137 - 145 mmol/L) Pending 140 Potassium (3.5 - 5.1 mmol/L) Pending 4.0 Chloride (98 - 107 mmol/L) Pending 109 H Carbon Dioxide (22 - 30 mmol/L) Pending 22 Anion Gap (5 - 16) Pending 10 BUN (9 - 20 mg/dL) Pending 10 Creatinine (0.7 - 1.2 mg/dL) Pending 0.7 Estimated GFR (>60 ml/min) > 60 BUN/Creatinine Ratio (7 - 25 %) Pending 14.3 Creatine Kinase Pending Coagulation PT (9.4 - 12.5 SEC) 17.6 H 22.2 H INR (0.90 - 1.17) 1.68 H 2.13 H Hematology CBC w Diff Pending WBC Pending RBC Pending Hgb Pending Hct Pending MCV Pending MCH Pending RDW Pending Plt Count Pending MPV Pending PUBS MCHC Pending Assessment/Plan Assessment/Plan 61yo male with left ureteral stone requiring pain mgt. He will be discharged on po pain meds and tamsulosin with strainer. He may be able to be treated on mon so he will be NPO p MN on sunday night. He has had lab work while an inpatient and i have asked his team to medically clear him for surgery if possible. Patient is in agreement with this plan. Otherwise if he has an uneventful weekend. he will fu with urology as an outpt next week. Core Measures/Miscellaneous Venous Thromboembolism VTE Risk Factors: Age > 40, Previous VTE VTE Contraindications: No Contraindications VTE Diagnosis: No VTE Type: NONE VTE Confirmed by (Test): NONE Beta Karen Is Beta Karen a Home Med? No Antibiotics Is Patient on Antibiotics? No
[2017-02-23 13:24] LABS: HEMATOCRIT 38.1 % (42-52)
--- NOTE | 2017-02-23 14:28 | CT SCAN REPORT ---
EXAMINATION: CT LUMBAR SPINE WITHOUT CONTRAST CLINICAL INFORMATION: Recent fall and history of nephrolithiasis. Fracture versus nephrolithiasis. COMPARISON: Renal radiographs 02/20/2017. Abdominal CT 02/19/2017. Abdominal CT from 07/24/2011. TECHNIQUE: Helical non-contrast CT images were obtained through the lumbar spine and 1.25 and 2.5 mm axial reconstructions were reviewed along with sagittal and coronal MPRs. FINDINGS: There are 5 nonrib-bearing lumbar-type vertebral bodies. Lumbar alignment is normal. The vertebral body heights are maintained. There are no acute fractures and there are no acute subluxations. Small anterior and plate osteophytes throughout the lumbar spine. There is mild disc space loss at L5-S1 and L4-L5. The remaining disc spaces are preserved. Stable appearance of the obstructing 4 mm calculus within the proximal left ureter at the L3-L4 disc level, in unchanged position in comparison to the 02/19/[address] There is stable moderate left-sided hydronephrosis. An IVC filter remains obliquely oriented within the IVC with several IVC filter legs extending outside the IVC lumen, in unchanged configuration in comparison to exams dated back to 2010. There is also a fractured IVC filter leg that has migrated into the mesentery on images 65-69 of series 5. This is also been present on examinations dated back to 2010. There is abdominal aortic atherosclerotic calcification. L1-L2: Disc contour is normal. No central canal stenosis and no foraminal stenosis. L2-L3: Slight annular disc bulge and mild left-sided facet arthropathy with no central canal stenosis and no foraminal stenosis. L3-L4: There is a small diffuse annular disc bulge and there is mild bilateral facet arthropathy with no central canal stenosis and no foraminal stenosis. L4-L5: There is a diffuse annular disc bulge and there is mild to moderate bilateral facet arthropathy. There is a superimposed left lateral disc protrusion that results in moderate left-sided foraminal stenosis with possible mild mass effect on the exiting left L4 nerve root. L5-S1: There is a small annular disc bulge and there is mild bilateral facet arthropathy. No central canal stenosis. Mild left foraminal narrowing. IMPRESSION: - Stable appearance and location of the 4 mm obstructing calculus within the proximal left ureter resulting in moderate left-sided hydronephrosis. - There are no acute fractures within the lumbar spine. Lumbar spondylosis is greatest at L4-L5 where a left lateral disc protrusion results in moderate left-sided foraminal stenosis with possible mild mass effect on the exiting left L4 nerve root. Additional mild spondylitic changes as discussed above - An IVC filter remains obliquely oriented within the IVC with several IVC filter legs extending outside the IVC lumen, in unchanged configuration in comparison to exams dated back to 2010. There is also a fractured IVC filter leg that has migrated into the mesentery on images 65-69 of series 5. This is also been present on examinations dated back to 2010.
== END 2017-02-23 16:58 | DRG 694 ==
LOC: ERH 14:28 → 2NB 19:06 → ERHI 19:06 → ENRESERV 21:06 → ENTRNSPT 22:37 → DELTRNSPT 22:46 → 2NB 22:53 → ENPENDDIS 02-23 15:53 → 2NB 02-23 16:58
PROVIDERS: Internal Medicine; Internal Medicine Endocrinology, Diabetes & Metabolism; Physician Assistant; ADMIT Internal Medicine
DX: N13.2 Hydronephrosis with renal and ureteral calculous obstruction (principal); I10 Essential (primary) hypertension; M47.9 Spondylosis, unspecified; Z86.718 Personal history of other venous thrombosis and embolism; Z79.01 Long term (current) use of anticoagulants; Z95.9 Presence of cardiac and vascular implant and graft, unspecified; R91.8 Other nonspecific abnormal finding of lung field; E78.5 Hyperlipidemia, unspecified; I25.2 Old myocardial infarction; Z86.73 Personal history of transient ischemic attack (TIA), and cerebral infarction without residual deficits; K21.9 Gastro-esophageal reflux disease without esophagitis; Z87.891 Personal history of nicotine dependence
CPT/HCPCS: 2NBSP; 36415; 74000; 76775; 80307; 81001; 82436; 87086; 93005; 93010; 96372; 96374; 96375; J0131; J1885; J2405; J2765

== ENCOUNTER → 2017-03-02 | Day surgery (SDC) | payer OTHER ==
[~2017-03-02] VITALS: Ht 175.3 cm; Wt 74.4 kg
[~2017-03-02] MED LIST changes: +COUMADIN2.5 M1 PO; +ENDOCET 5-3251 EACH PO; +LOVENOX; +NEXIUM40 M1 PO
[2017-03-02 08:49] LABS: PT 16.2 SEC (9.4-12.5)
--- NOTE | 2017-03-02 09:52 | Operative Report ---
Operative/Inv Procedure Report Surgery Date: 03/02/17 Name of Procedure: left ureteroscopy with laser lithotripsy stent placement Pre-Operative Diagnosis: left ureteral stone with mild hydronephrosis Post-Operative Diagnosis: same Estimated Blood Loss: scant Surgeon/Cannery Tender Engineer: MANE BATRES MD Anesthesia: laryngeal mask airway Drains: 6x26cm stent Specimens: stone fragments Complications: none Condition: stable Operative Indication: left renal colic with left ureteral stone and hydronephrosis Operative/Procedure Note Note: 62yo male with a hx of left renal colic for over a week. He was given conservative management but had worsening renal colic. He was consented for left ureteroscopy with laserlithotripsy and stent placement. THe risks, benefits and alternatives were given and all questions were answered. He is on anticoagulation and understands he has a greater risk for bleeding because of this. Patient was brought to the operating room and placed in the supine position. Time out was performed and IV antibiotics were infused. He was given LMA anesthesia. He was then placed in the dorsal lithotomy position and prepped and draped in the normal sterile fashion. A cystoscopy was performed and the bladder was globally inspected. THe ureteral orifices were in the normal anatomic position. The left ureteral orifice was cannulated with a sensor guidewire and into the renal pelvis with flouroscopy imaging. The semirigid ureteroscope was then placed into the ureter. The stone was encountered at the proximal ureteral just distal to the UPJ. This was lasered into fragments with the 272um fiber at setting of 8Hertz and 0.8joules. The zero tip basket was then used to remove the fragments. These were sent for stone analysis. The ureter was free from stone fragments. The ureteroscope was then removed and the sensor wire was used to place a 6x26cm stent with the cystoscope and flouroscopy views. It was seen to be in good position and the bladder was emptied. Patient was transferred to the recovery room in good condition. Findings: left ureteral stone yellow in color brittle Discharge Disposition: PACU
--- NOTE | 2017-03-02 20:42 | RADIOLOGY REPORT ---
EXAMINATION: XR ABDOMEN CLINICAL INDICATION: Left renal calculus. Ureteroscopy with laser. COMPARISON: CT scan of 02/19/2017. TECHNIQUE: 4 C-arm views of the abdomen. FINDINGS: 4 views taken in the operating room demonstrate placement of wire and left ureteral stent. IMPRESSION: Intraoperative films demonstrating placement left renal stent. 4 seconds fluoroscopy.
== END ==
LOC: STS 04:21
PROVIDERS: Urology
DX: N13.2 Hydronephrosis with renal and ureteral calculous obstruction (principal); N23 Unspecified renal colic; I10 Essential (primary) hypertension; I82.501 Chronic embolism and thrombosis of unspecified deep veins of right lower extremity; Z79.01 Long term (current) use of anticoagulants; K21.9 Gastro-esophageal reflux disease without esophagitis; Z87.891 Personal history of nicotine dependence
CPT/HCPCS: 36415; 74000; C2617; J0690